=== PATIENT | female | born 1980 | race Caucasian/White ===

== ENCOUNTER 2018-09-02 15:52 | Inpatient (IN) | payer OTHER ==
--- NOTE | 2018-09-02 19:04 | HP ---
COWS - Scale Resting Pulse: 0= [place] 80 or Below Sweatin= Chills/Flushing Restless Observation: 1= Difficult to Sit Still Pupil Size: 1= Pupils >than Normal Bone or Joint Aches: 2= Severe Diffuse Aches Runny Nose/ Eye Tearin= Runny Nose/Eyes GI Upset > 30mins: 3= Vomiting/Diarrhea Tremor Observation: 2= Slight Tremor Visible Yawning Observation: 0= None Anxiety or Irritability: 4=Extreme Anxiety Goose Flesh Skin: 0=Smooth Skin COWS Score: 16 CIWA Score - Admission Criteria OAS Guidelines: Admission for Medically Managed Detox: Requires at least one of the followin. CIWA greater than 12 2. Seizures within the past 24 hours 3. Delirium tremens within the past 24 hours 4. Hallucinations within the past 24 hours 5. Acute intervention needed for co occurring medical disorder 6. Acute intervention needed for co occurring psychiatric disorder 7. Severe withdrawal that cannot be handled at a lower level of care (continued vomiting, continued diarrhea, abnormal vital signs) requiring intravenous medication and/or fluids 8. Admission [facility] Chief Complaint: " heroin detox" Allergies/Adverse Reactions: Allergies Allergy/AdvReac Type Severity Reaction Status Date / Time No Known Allergies Allergy Verified 01/04/16 17:33 History of Present Illness: 38 yo female with hx of heroin (nasal), cocaine, street buprenorphine dependence and occasional klonopin dependence is here seeking detox, self referred. Patient reports sobriety 18 months ago, reports relapsed about a week ago. Reports hx of depression and depression reports was on lamicatal BID and stop treatment. Denies any other medical problems. Denies suicidal / homicidal ideation. Reports hx of overdose x3, last episode 12/29/2015. Exam Limitations: No Limitations - Ebola screening Have you traveled outside of the country in the last 21 days: No Have you had contact with anyone from an Ebola affected area: No - Review of Systems Constitutional: Chills, Loss of Appetite (not eatent three days), Malaise, Changes in sleep, Weakness EENT: reports: Tearing, Nose Congestion Respiratory: reports: Cough (x 2 days), Other (chest soreness during inspiration ) Cardiac: reports: Palpitations GI: reports: Diarrhea, Nausea, Poor Appetite, Poor Fluid Intake, Vomiting, Abdominal cramping : reports: Dysuria, Other (new vaginal lesion / "lumps' break out x 2 days, yellow vaginal discharge x 2 days, patient requested STD testing d/t infidelity from partner and urinary discomfort) Musculoskeletal: reports: Back Pain, Joint Pain Integumentary: reports: No Symptoms Reported Neuro: reports: Weakness Endocrine: reports: Increased Thirst Hematology: reports: No Symptoms Reported Psychiatric: reports: Orientated x3, Anxious, Depressed Other Systems: Reviewed and Negative Patient History - Patient Medical History Hx Anemia: No Hx Asthma: No Hx Chronic Obstructive Pulmonary Disease (COPD): No Hx Cancer: No Hx Cardiac Disorders: No Hx Congestive Heart Failure: No Hx Hypertension: No Hx Hypercholesterolemia: No Hx Pacemaker: No HX Cerebrovascular Accident: No Hx Seizures: No Hx Dementia: No Hx Diabetes: No Hx Gastrointestinal Disorders: No Hx Liver Disease: No Hx Genitourinary Disorders: No Hx Sexually Transmitted Disorders: No Hx Renal Disease (ESRD): No Hx Thyroid Disease: No Hx Human Immunodeficiency Virus (HIV): No (negative) Hx Hepatitis C: No Hx Depression: Yes Hx Suicide Attempt: No Hx Bipolar Disorder: Yes Hx Schizophrenia: No - Patient Surgical History Past Surgical History: Yes Other Surgical History: TONSILLECTOMY AT AGE 7 YRS Anesthesia Reaction: No - PPD History Previous Implant?: No Documented Results: Negative w/proof Date: 03/06/15 Results: 0 mm - Reproductive History Patient is a Female of Child Bearing Age (11 -55 yrs old): Yes Last Menstrual Period: 08/27/18 Patient : No - Smoking Cessation Smoking history: Current every day smoker Have you smoked in the past 12 months: Yes Aproximately how many cigarettes per day: 20 Cigars Per Day: 0 Hx Chewing Tobacco Use: No Initiated information on smoking cessation: Yes 'Breaking Loose' booklet given: 09/02/18 - Substance & Tx. History Hx Alcohol Use: No Hx Substance Use: Yes Substance Use Type: Cocaine, Heroin, Marijuana Hx Substance Use Treatment: Yes (Last treatment [facility] rehab January 2016) - Substances abused Heroin Substance route: Inhalation Frequency: Daily Amount used: gram a day ( 1 bundle) Age of first use: 32 Date of last use: 09/02/18 Crack Substance route: Smoking Frequency: Daily Amount used: a lot ' more than shit' Age of first use: 32 Date of last use: 09/02/18 Buprenorphine Substance route: Oral Amount used: 8 Age of first use: 38 Date of last use: 08/31/18 Benzodiazepine (Klonopin) Substance route: Oral Frequency: 1-2 times per week Amount used: 2 mg Age of first use: 38 Date of last use: 08/31/18 Family Disease History - Family Disease History Family Disease History: Heart Disease: Father (prosthetic mitral valve ), Other : Mother (htn, depression anxiety), Brother ( opiate dependence) Admission Physical Exam [facility] - Vital Signs Vital Signs: Vital Signs - 24 hr 09/02/18 18:23 Temperature 98 F Pulse Rate 135 H Respiratory 18 Rate Blood Pressure 115/75 - Physical General Appearance: Yes: Disheveled, Moderate Distress, Thin, Sweating, Anxious HEENTM: Yes: EOMI, Hearing grossly Normal, Normal ENT Inspection, Normocephalic , Normal Voice, [place], Pharynx Normal, Tm's normal, Rhinorrhea, Other (cheilitis) Respiratory: Yes: Chest Non-Tender, Lungs Clear, Normal Breath Sounds, No Respiratory Distress, Other (+ cough) Neck: Yes: Within Normal Limits Breast: Yes: Breast Exam Deferred Cardiology: Yes: Regular Rhythm, Regular Rate Abdominal: Yes: Normal Bowel Sounds, Non Tender, Flat, Soft Genitourinary: Yes: Burning, [place], Vaginal Discharge, Other (+papular , v) Musculoskeletal: Yes: full range of Motion, Gait Steady, Pelvis Stable, Back pain Extremities: Yes: Normal Capillary Refill, Normal Inspection, Normal Range of Motion, Coldness 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 intact, Fully Oriented, Alert, Motor Strength 5/5, Depressed Affect Integumentary: Yes: Normal Color, Warm, Diaphoresis Lymphatic: Yes: Within Normal Limits, Other (+left inguinal lymphadenopathy) - Diagnostic (1) Rash and nonspecific skin eruption Current Visit: Yes Status: Acute (2) Cocaine dependence Current Visit: Yes Status: Chronic Qualifiers: Substance use status: uncomplicated Qualified Code(s): F14.20 - Cocaine dependence, uncomplicated (3) Nicotine dependence, uncomplicated Current Visit: Yes Status: Chronic Qualifiers: Nicotine product type: cigarettes Qualified Code(s): F17.210 - Nicotine dependence, cigarettes, uncomplicated (4) Opioid dependence with withdrawal Current Visit: Yes Status: Acute (5) URI (upper respiratory infection) Current Visit: Yes Status: Acute Qualifiers: URI type: unspecified URI Qualified Code(s): J06.9 - Acute upper respiratory infection, unspecified Cleared for Admission [facility] - Detox or Rehab [facility] Level of Care: Medically Managed Detox Regimen/Protocol: Methadone Urine Drug Screen - Results Drug screen NEGATIVE: No Urine drug screen results: THC-Marijuana, FREEDOM-Cocaine, MOP-Opiates, BUP-Suboxone Inpatient Rehab Admission - Rehab Decision to Admit Inpatient rehab admission?: No
[2018-09-02] MEDS ORDERED: ACETAMINOPHEN 325 MG TABLET (FP) PO PRN ×2 (19:13)
[2018-09-02] MEDS ORDERED: MAG HYDROX/AL HYDROX/SIMETH 30 ML UNIT-DOSE CUP PO PRN (19:13)
[2018-09-02] MEDS ORDERED: MELATONIN 5 MG TABLETS PO PRN (19:13)
[2018-09-02] MEDS ORDERED: MAGNESIUM HYDROX 2400MG/30ML ORAL SUSPENSION 30 ML CUP PO PRN (19:13)
[2018-09-02] MEDS ORDERED: MENTHOL/PHENOL 1 EACH UD MM PRN (19:13)
[2018-09-02] MEDS ORDERED: MAGNESIUM CITRATE 300 ML BOTTLE PO PRN (19:13)
[2018-09-02] MEDS ORDERED: cloNIDine HCL 0.1 MG TABLET PO PRN (19:13)
[2018-09-02] MEDS ORDERED: BISMUTH SUBSALICYLATE 524 MG/30 ML UD PO PRN (19:13)
[2018-09-02] MEDS ORDERED: BACITRACIN 15 GM TUBE TOPICAL OINTMENT TP SCH (19:15)
[2018-09-02] MEDS ORDERED: METHADONE HCL 10 MG TABLET (FOR DETOX USE ONLY) PO ONE ×2 (21:00→23:00)
[2018-09-02] MEDS ORDERED: AZITHROMYCIN 250 MG TABLET PO ONE (21:00)
[2018-09-02] MEDS: BACITRACIN 0.9 GM PACKET TP SCH (21:26)
[2018-09-02] MEDS: THIAMINE HCL 100 MG TABLET (FP) PO SCH (22:19)
[2018-09-02] MEDS: diazePAM 5 MG TABLET PO PRN (22:19)
[2018-09-02] MEDS: NICOTINE POLACRILEX 2 MG GUM BUC PRN (23:41)
[2018-09-03 00:47] LABS: EPI CELLS 10.9 /HPF (0-5); URINE APPEARANCE CLOUDY; URINE BACTERIA 970.5 /hpf (NEGATIVE); URINE BILIRUBIN NEGATIVE (NEGATIVE); URINE CASTS 4 /hpf (0-8); URINE COLOR YELLOW; URINE GLUCOSE (UA) NEGATIVE (NEGATIVE); URINE KETONE NEGATIVE (NEGATIVE); URINE LEUK ESTERASE 1+ (NEGATIVE); URINE NITRITE NEGATIVE (NEGATIVE); URINE PROTEIN NEGATIVE (NEGATIVE); URINE RBC 1 /hpf (0-4); URINE WBC 8 /hpf (0-5)
[2018-09-03] MEDS: diazePAM 5 MG TABLET PO PRN ×4 (07:38→22:12)
[2018-09-03] MEDS: NICOTINE POLACRILEX 2 MG GUM BUC PRN ×6 (07:39→20:20)
[2018-09-03] MEDS ORDERED: METHADONE HCL 10 MG TABLET (FOR DETOX USE ONLY) PO ONE (10:00)
[2018-09-03 10:09] LABS: ALBUMIN 3.9 g/dl (3.4-5.0); ALK PHOS 73 U/L (45-117); ANION GAP 8 MMOL/L (8-16); BILIRUBIN,TOTAL 0.4 mg/dL (0.2-1); BLOOD UREA NITROGEN 7 mg/dL (7-18); CALCIUM 8.7 mg/dL (8.5-10.1); CHLORIDE 98 mmol/L (98-107); CO2 30 mmol/L (21-32); CREATININE 0.8 mg/dL (0.55-1.3); GLUCOSE,RANDOM 102 mg/dL (74-106); POTASSIUM 3.9 mmol/L (3.5-5.1); SGOT/AST 21 U/L (15-37); SGPT/ALT 28 U/L (13-61); SODIUM 136 mmol/L (136-145)
--- NOTE | 2018-09-03 10:13 | PN ---
BHS COWS - Scale Resting Pulse: 1= [place] 81-100 Sweatin=Flushed/Facial Moisture Restless Observation: 1= Difficult to Sit Still Pupil Size: 0= Normal to Room Light Bone or Joint Aches: 2= Severe Diffuse Aches Runny Nose/ Eye Tearin= Runny Nose/Eyes GI Upset > 30mins: 1= Stomach Cramp Tremor Observation of Outstretched Hands: 2= Slight Tremor Visible Yawning Observation: 2= >3x During Session Anxiety or Irritability: 2=Irritable/Anxious Goose Flesh Skin: 0=Smooth Skin COWS Score: 15 BHS Progress Note (SOAP) Subjective: sweats shakes interrupted sleep body aches vaginal discharge urinary burning anal burning when I wipe Objective: 09/03/18 10:13 Vital Signs Temperature 97.9 F 09/03/18 07:55 Pulse Rate 69 09/03/18 07:55 Respiratory Rate 18 09/03/18 07:55 Blood Pressure 100/58 L 09/03/18 07:55 O2 Sat by Pulse Oximetry (%) Laboratory Tests 09/02/18 09/03/18 22:56 07:00 Sodium 136 Potassium 3.9 Chloride 98 Carbon Dioxide 30 Anion Gap 8 BUN 7 Creatinine 0.8 Creat Clearance w eGFR 81.16 Random Glucose 102 Calcium 8.7 Total Bilirubin 0.4 AST 21 ALT 28 Alkaline Phosphatase 73 Total Protein 8.0 Albumin 3.9 Urine Color Yellow Urine Appearance Cloudy Urine pH 6.0 Ur Specific [place] 1.010 Urine Protein Negative Urine Glucose (UA) Negative Urine Ketones Negative Urine Blood Trace Urine Nitrite Negative Urine Bilirubin Negative Urine Urobilinogen 1.0 Ur Leukocyte Esterase 1+ H Urine WBC (Auto) 8 Urine RBC (Auto) 1 Urine Casts (Auto) 4 U Epithel Cells (Auto) 10.9 Urine Bacteria (Auto) 970.5 aaox3 ambulating no acute distress repeat u/a with c&s pt c/o burning when urinating Assessment: 09/03/18 10:14 withdrawal sx Plan: continue detox increase fluids macrobid q6hr x 7 days anusol pr labs pending
[2018-09-03] MEDS: BACITRACIN 0.9 GM PACKET TP SCH (10:31)
[2018-09-03] MEDS: NICOTINE 21 MG/24 HOURS TOPICAL PATCH TD SCH (10:32)
[2018-09-03] MEDS: PRENATAL VITAMINS W/ FOLIC ACID TABLET (FP) PO SCH (10:32)
[2018-09-03] MEDS: AZITHROMYCIN 250 MG TABLET PO SCH (10:32)
[2018-09-03 10:46] LABS: HEMOGLOBIN 15.3 GM/dL (10.7-15.3); MCH 29.5 pg (25.7-33.7); MCHC 33.3 g/dl (32.0-36.0); MEAN CELL VOLUME 88.6 fl (80-96); MEAN PLT VOLUME 8.9 fl (7.5-11.1); PLATELET COUNT 306 K/MM3 (134-434); RDW 13.4 % (11.6-15.6); WHITE BLOOD COUNT 8.5 K/mm3 (4.0-10.0)
[2018-09-03] MEDS: NITROFURANTOIN MACROCRYSTAL 50 MG CAPSULE (FP) PO SCH ×3 (11:48→23:02)
[2018-09-03] MEDS: HYDROCORTISONE 2.5% TOPICAL CREAM 30 GM TUBE TP SCH ×2 (11:49→22:12)
--- NOTE | 2018-09-03 11:50 | EKG ---
Test Reason : Blood Pressure : / mmHG Vent. Rate : 069 BPM Atrial Rate : 069 BPM P-R Int : 160 ms QRS Dur : 082 ms QT Int : 418 ms P-R-T Axes : 072 062 066 degrees QTc Int : 447 ms NORMAL SINUS RHYTHM NORMAL ECG NO PREVIOUS ECGS AVAILABLE Confirmed by ALVINO CABAN, CORRINA ([id number]) on 09/03/2018 11:49:43 AM Referred By: MARY DONNELLY Confirmed By:CORRINA DE OLIVEIRA MD
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
[2018-09-03] MEDS: hydrOXYzine PAMOATE 25 MG CAPSULE (FP) PO PRN (17:16)
[2018-09-03] MEDS: THIAMINE HCL 100 MG TABLET (FP) PO SCH (22:14)
[2018-09-04] MEDS: NICOTINE POLACRILEX 2 MG GUM BUC PRN ×4 (02:01→14:23)
[2018-09-04] MEDS: diazePAM 5 MG TABLET PO PRN ×4 (05:25→19:59)
[2018-09-04] MEDS: NITROFURANTOIN MACROCRYSTAL 50 MG CAPSULE (FP) PO SCH ×4 (05:26→23:12)
[2018-09-04] MEDS ORDERED: METHADONE HCL 10 MG TABLET (FOR DETOX USE ONLY) PO ONE (10:00)
[2018-09-04] MEDS: PRENATAL VITAMINS W/ FOLIC ACID TABLET (FP) PO SCH (10:13)
[2018-09-04] MEDS: AZITHROMYCIN 250 MG TABLET PO SCH (10:13)
[2018-09-04] MEDS: HYDROCORTISONE 2.5% TOPICAL CREAM 30 GM TUBE TP SCH ×2 (10:13→22:18)
[2018-09-04] MEDS: BACITRACIN 0.9 GM PACKET TP SCH (10:13)
[2018-09-04] MEDS: NICOTINE 21 MG/24 HOURS TOPICAL PATCH TD SCH (10:14)
--- NOTE | 2018-09-04 13:25 | PN ---
BHS COWS - Scale Resting Pulse: 0= [place] 80 or Below Sweatin=Flushed/Facial Moisture Restless Observation: 1= Difficult to Sit Still Pupil Size: 0= Normal to Room Light Bone or Joint Aches: 2= Severe Diffuse Aches Runny Nose/ Eye Tearin= Runny Nose/Eyes GI Upset > 30mins: 0= None Tremor Observation of Outstretched Hands: 2= Slight Tremor Visible Yawning Observation: 2= >3x During Session Anxiety or Irritability: 2=Irritable/Anxious Goose Flesh Skin: 0=Smooth Skin COWS Score: 13 BHS Progress Note (SOAP) Subjective: visible genital herpes anxiety sweats shakes body aches tired Objective: 09/04/18 13:22 Vital Signs Temperature 97.9 F 09/04/18 09:43 Pulse Rate 65 09/04/18 09:43 Respiratory Rate 17 09/04/18 09:43 Blood Pressure 109/48 L 09/04/18 09:43 O2 Sat by Pulse Oximetry (%) Laboratory Tests 09/02/18 09/03/18 09/03/18 22:56 07:00 07:00 WBC 8.5 RBC 5.20 Hgb 15.3 Hct 46.0 H MCV 88.6 MCH 29.5 D MCHC 33.3 RDW 13.4 Plt Count 306 D MPV 8.9 Sodium Potassium Chloride Carbon Dioxide Anion Gap BUN Creatinine Creat Clearance w eGFR Random Glucose Calcium Total Bilirubin AST ALT Alkaline Phosphatase Total Protein Albumin Urine Color Yellow Urine Appearance Cloudy Urine pH 6.0 Ur Specific [place] 1.010 Urine Protein Negative Urine Glucose (UA) Negative Urine Ketones Negative Urine Blood Trace Urine Nitrite Negative Urine Bilirubin Negative Urine Urobilinogen 1.0 Ur Leukocyte Esterase 1+ H Urine WBC (Auto) 8 Urine RBC (Auto) 1 Urine Casts (Auto) 4 U Epithel Cells (Auto) 10.9 Urine Bacteria (Auto) 970.5 RPR Titer HIV 1&2 Antibody Screen Negative HIV P24 Antigen Negative 09/03/18 09/03/18 07:00 07:00 WBC RBC Hgb Hct MCV MCH MCHC RDW Plt Count MPV Sodium 136 Potassium 3.9 Chloride 98 Carbon Dioxide 30 Anion Gap 8 BUN 7 Creatinine 0.8 Creat Clearance w eGFR 81.16 Random Glucose 102 Calcium 8.7 Total Bilirubin 0.4 AST 21 ALT 28 Alkaline Phosphatase 73 Total Protein 8.0 Albumin 3.9 Urine Color Urine Appearance Urine pH Ur Specific [place] Urine Protein Urine Glucose (UA) Urine Ketones Urine Blood Urine Nitrite Urine Bilirubin Urine Urobilinogen Ur Leukocyte Esterase Urine WBC (Auto) Urine RBC (Auto) Urine Casts (Auto) U Epithel Cells (Auto) Urine Bacteria (Auto) RPR Titer Nonreactive HIV 1&2 Antibody Screen HIV P24 Antigen aaox3 ambulating no acute distress Assessment: 09/04/18 13:23 withdrawal sx pt request to have mortgage underwriter see her private area (vaginal area) to see why she is in so much discomfort when she goes to void. visible open sores to vaginal area noted. Plan: continue detox increase fluids valtrex 1000mg bid x 7 days ordered continue with prior ABX ordered motrin/tylenol prn
--- NOTE | 2018-09-04 13:27 | PN ---
BHS Progress Note Note: pt will remain on the unit until Friday for discharge. pt is at risk of relapse if d/c on Friday. she will go on Friday to her next level of care.
[2018-09-04] MEDS ORDERED: valACYclovir HCL 500 MG TABLET (FP) PO ONE (13:45)
[2018-09-04] MEDS: NICOTINE POLACRILEX 4 MG GUM BUC PRN ×3 (16:47→21:21)
[2018-09-04] MEDS: hydrOXYzine PAMOATE 25 MG CAPSULE (FP) PO PRN (17:09)
[2018-09-04] MEDS ORDERED: valACYclovir HCL 500 MG TABLET (FP) PO SCH (22:00)
[2018-09-04] MEDS: THIAMINE HCL 100 MG TABLET (FP) PO SCH (22:18)
[2018-09-04] MEDS: METHOCARBAMOL 500 MG TABLET PO PRN (22:19)
[2018-09-04] MEDS: valACYclovir HCL 500 MG TABLET (FP) PO SCH (22:19)
[2018-09-05] MEDS: diazePAM 5 MG TABLET PO PRN ×4 (00:40→15:40)
[2018-09-05] MEDS: NICOTINE POLACRILEX 4 MG GUM BUC PRN ×7 (00:42→22:16)
[2018-09-05] MEDS: NITROFURANTOIN MACROCRYSTAL 50 MG CAPSULE (FP) PO SCH ×4 (05:23→23:33)
[2018-09-05] MEDS ORDERED: METHADONE HCL 10 MG TABLET (FOR DETOX USE ONLY) PO ONE (10:00)
[2018-09-05] MEDS: BACITRACIN 0.9 GM PACKET TP SCH (10:08)
[2018-09-05] MEDS: valACYclovir HCL 500 MG TABLET (FP) PO SCH ×2 (10:09→22:15)
[2018-09-05] MEDS: AZITHROMYCIN 250 MG TABLET PO SCH (10:09)
[2018-09-05] MEDS: PRENATAL VITAMINS W/ FOLIC ACID TABLET (FP) PO SCH (10:09)
[2018-09-05] MEDS: HYDROCORTISONE 2.5% TOPICAL CREAM 30 GM TUBE TP SCH ×2 (10:10→22:15)
[2018-09-05] MEDS: NICOTINE 21 MG/24 HOURS TOPICAL PATCH TD SCH (10:10)
[2018-09-05] MEDS: COLLOIDAL OATMEAL 1 BAR EACH TP PRN ×2 (10:29→18:35)
[2018-09-05] MEDS: IBUPROFEN 400 MG TABLET (FP) PO PRN (15:02)
--- NOTE | 2018-09-05 18:02 | PN ---
S Progress Note (SOAP) Subjective: "it bloom when the urine touches my skin" Objective: 09/05/18 18:00 A & o x3 anxious blisters noted to jayla-anal area gait steady Vital Signs Temperature 97.3 F L 09/05/18 17:47 Pulse Rate 71 09/05/18 17:47 Respiratory Rate 16 09/05/18 17:47 Blood Pressure 109/57 L 09/05/18 17:47 O2 Sat by Pulse Oximetry (%) Assessment: 09/05/18 18:01 withdrawal sx herpes blisters Plan: continue detox continue valtrex aveeno soap for bathing
[2018-09-05] MEDS: THIAMINE HCL 100 MG TABLET (FP) PO SCH (22:15)
[2018-09-05] MEDS: hydrOXYzine PAMOATE 25 MG CAPSULE (FP) PO PRN (22:18)
[2018-09-06] MEDS: NICOTINE POLACRILEX 4 MG GUM BUC PRN ×6 (00:46→20:31)
[2018-09-06] MEDS: NITROFURANTOIN MACROCRYSTAL 50 MG CAPSULE (FP) PO SCH ×3 (05:31→18:01)
[2018-09-06] MEDS ORDERED: METHADONE HCL 5 MG TABLET (FOR DETOX USE ONLY) PO ONE (06:00)
[2018-09-06] MEDS: valACYclovir HCL 500 MG TABLET (FP) PO SCH ×2 (10:20→22:24)
[2018-09-06] MEDS: BACITRACIN 0.9 GM PACKET TP SCH (10:20)
[2018-09-06] MEDS: HYDROCORTISONE 2.5% TOPICAL CREAM 30 GM TUBE TP SCH ×2 (10:20→23:05)
[2018-09-06] MEDS: PRENATAL VITAMINS W/ FOLIC ACID TABLET (FP) PO SCH (10:21)
[2018-09-06] MEDS: AZITHROMYCIN 250 MG TABLET PO SCH (10:21)
[2018-09-06] MEDS: NICOTINE 21 MG/24 HOURS TOPICAL PATCH TD SCH (10:21)
[2018-09-06] MEDS: hydrOXYzine PAMOATE 25 MG CAPSULE (FP) PO PRN ×2 (10:58→18:03)
--- NOTE | 2018-09-06 17:19 | PN ---
S Progress Note (SOAP) Subjective: Anxious, chills, interrupted sleep. Patient requesting nicotine gum 4mg stating she smokes 2 ppd of cigarettes. Objective: 09/06/18 17:16 Last Vital Signs Temp Pulse Resp BP Pulse Ox 98.1 F 81 18 112/70 09/06/18 15:52 09/06/18 15:52 09/06/18 15:52 09/06/18 15:52 Laboratory Tests 09/02/18 09/03/18 09/03/18 22:56 07:00 07:00 WBC 8.5 RBC 5.20 Hgb 15.3 Hct 46.0 H MCV 88.6 MCH 29.5 D MCHC 33.3 RDW 13.4 Plt Count 306 D MPV 8.9 Sodium Potassium Chloride Carbon Dioxide Anion Gap BUN Creatinine Creat Clearance w eGFR Random Glucose Calcium Total Bilirubin AST ALT Alkaline Phosphatase Total Protein Albumin Urine Color Yellow Urine Appearance Cloudy Urine pH 6.0 Ur Specific [place] 1.010 Urine Protein Negative Urine Glucose (UA) Negative Urine Ketones Negative Urine Blood Trace Urine Nitrite Negative Urine Bilirubin Negative Urine Urobilinogen 1.0 Ur Leukocyte Esterase 1+ H Urine WBC (Auto) 8 Urine RBC (Auto) 1 Urine Casts (Auto) 4 U Epithel Cells (Auto) 10.9 Urine Bacteria (Auto) 970.5 RPR Titer HIV 1&2 Antibody Screen Negative HIV P24 Antigen Negative 09/03/18 09/03/18 07:00 07:00 WBC RBC Hgb Hct MCV MCH MCHC RDW Plt Count MPV Sodium 136 Potassium 3.9 Chloride 98 Carbon Dioxide 30 Anion Gap 8 BUN 7 Creatinine 0.8 Creat Clearance w eGFR 81.16 Random Glucose 102 Calcium 8.7 Total Bilirubin 0.4 AST 21 ALT 28 Alkaline Phosphatase 73 Total Protein 8.0 Albumin 3.9 Urine Color Urine Appearance Urine pH Ur Specific [place] Urine Protein Urine Glucose (UA) Urine Ketones Urine Blood Urine Nitrite Urine Bilirubin Urine Urobilinogen Ur Leukocyte Esterase Urine WBC (Auto) Urine RBC (Auto) Urine Casts (Auto) U Epithel Cells (Auto) Urine Bacteria (Auto) RPR Titer Nonreactive HIV 1&2 Antibody Screen HIV P24 Antigen Labs reviewed: abnormal UA Assessment: 09/06/18 17:17 Withdrawal symptoms Noted with abnormal UA Plan: Continue detox Encouraged PO water hydration Abnormal UA: repeat UA stat Patient for discharge tomorrow. Follow up on repeated UA result to rule out UTI before discharging patient.
[2018-09-06] MEDS: IBUPROFEN 400 MG TABLET (FP) PO PRN (18:03)
[2018-09-06 22:06] VITALS: TEMP 97.9
[2018-09-06] MEDS: METHOCARBAMOL 500 MG TABLET PO PRN (22:24)
[2018-09-06] MEDS: THIAMINE HCL 100 MG TABLET (FP) PO SCH (22:25)
[2018-09-07] MEDS: NITROFURANTOIN MACROCRYSTAL 50 MG CAPSULE (FP) PO SCH ×2 (00:10→05:18)
[2018-09-07] MEDS: NICOTINE POLACRILEX 4 MG GUM BUC PRN ×4 (03:52→10:36)
--- NOTE | 2018-09-07 09:09 | DS ---
[facility] Detox Discharge Summary Admission Date: 09/02/18 Discharge Date: 09/07/18 - History Present History: Alcohol Dependence, Cannabis Dependence, Cocaine Dependence, Opioid Dependence - Physical Exam Results Vital Signs: Vital Signs Temperature 97.9 F 09/07/18 06:00 Pulse Rate 71 09/07/18 06:00 Respiratory Rate 16 09/07/18 06:00 Blood Pressure 124/72 09/07/18 06:00 O2 Sat by Pulse Oximetry (%) - Treatment Hospital Course: Detox Protocol Followed, Detoxed Safely, Responded well, Discharged Condition Good, Rehab Referral Accepted - Medication Discharge Medications: Ambulatory Orders Sertraline HCl [Zoloft] 100 mg PO DAILY #30 tablet 11/21/15 Sertraline HCl [Zoloft -] 100 mg PO DAILY #60 tablet 02/01/16 traZODone HCL [Desyrel -] 100 mg PO HS #30 tablet 02/01/16 Lamictal 100 mg PO DAILY 09/02/18 - Diagnosis (1) Opioid dependence with withdrawal Current Visit: Yes Status: Chronic (2) Substance induced mood disorder Current Visit: Yes Status: Acute (3) Substance-induced anxiety disorder Current Visit: Yes Status: Acute (4) URI (upper respiratory infection) Current Visit: Yes Status: Acute Qualifiers: URI type: unspecified URI Qualified Code(s): J06.9 - Acute upper respiratory infection, unspecified (5) Cocaine dependence Current Visit: Yes Status: Chronic Qualifiers: Substance use status: uncomplicated Qualified Code(s): F14.20 - Cocaine dependence, uncomplicated (6) Nicotine dependence, uncomplicated Current Visit: Yes Status: Chronic Qualifiers: Nicotine product type: cigarettes Qualified Code(s): F17.210 - Nicotine dependence, cigarettes, uncomplicated (7) Alcohol dependence with withdrawal, uncomplicated Current Visit: Yes Status: Chronic (8) Personality disorder, unspecified Current Visit: No Status: Acute (9) Substance-induced sleep disorder Current Visit: No Status: Acute (10) Cannabis dependence Current Visit: Yes Status: Chronic (11) Chronic post-traumatic stress disorder (PTSD) Current Visit: No Status: Chronic (12) Post traumatic stress disorder (PTSD) Current Visit: No Status: Chronic (13) Psychoactive substance-induced mood disorder Current Visit: No Status: Chronic (14) Sedative/hypnotic withdrawal without complication Current Visit: Yes Status: Chronic - AMA Did Patient Leave Against Medical Advice: No [facility]
[2018-09-07 09:32] VITALS: BP 116/63; PULSE 84
[2018-09-07 10:17] LABS: EPI CELLS 3.7 /HPF (0-5); PH,URINE 8.5 (5.0-8.0); URINE APPEARANCE CLEAR; URINE BACTERIA 46.7 /hpf (NEGATIVE); URINE BILIRUBIN NEGATIVE (NEGATIVE); URINE CASTS 0 /hpf (0-8); URINE COLOR YELLOW; URINE GLUCOSE (UA) NEGATIVE (NEGATIVE); URINE KETONE NEGATIVE (NEGATIVE); URINE LEUK ESTERASE 1+ (NEGATIVE); URINE NITRITE NEGATIVE (NEGATIVE); URINE PROTEIN NEGATIVE (NEGATIVE); URINE RBC 1 /hpf (0-4); URINE WBC 1 /hpf (0-5)
[2018-09-07] MEDS: BACITRACIN 0.9 GM PACKET TP SCH (10:35)
[2018-09-07] MEDS: PRENATAL VITAMINS W/ FOLIC ACID TABLET (FP) PO SCH (10:35)
[2018-09-07] MEDS: valACYclovir HCL 500 MG TABLET (FP) PO SCH (10:48)
[2018-09-07] MEDS: HYDROCORTISONE 2.5% TOPICAL CREAM 30 GM TUBE TP SCH (11:01)
[2018-09-07] MEDS: NICOTINE 21 MG/24 HOURS TOPICAL PATCH TD SCH (11:02)
[2018-09-07] MEDS ORDERED: valACYclovir HCL 500 MG TABLET (FP) PO ONE (12:00)
== END 2018-09-07 11:48 | disposition home or self-care (01) | DRG 773 ==
LOC: YASAS 15:52 → Y6N 20:58
PROVIDERS: ADMIT Surgery; ATTEND Surgery
PROC: HZ2ZZZZ Detoxification Services for Substance Abuse Treatment (ICD-10-PCS; principal; 2018-09-02)
DX: F11.23 Opioid dependence with withdrawal (principal); F10.230 Alcohol dependence with withdrawal, uncomplicated; F13.230 Sedative, hypnotic or anxiolytic dependence with withdrawal, uncomplicated; F14.20 Cocaine dependence, uncomplicated; F12.20 Cannabis dependence, uncomplicated; F17.210 Nicotine dependence, cigarettes, uncomplicated; F19.24 Other psychoactive substance dependence with psychoactive substance-induced mood disorder; F19.280 Other psychoactive substance dependence with psychoactive substance-induced anxiety disorder; F19.282 Other psychoactive substance dependence with psychoactive substance-induced sleep disorder; F60.9 Personality disorder, unspecified; F19.94 Other psychoactive substance use, unspecified with psychoactive substance-induced mood disorder; F43.10 Post-traumatic stress disorder, unspecified; J06.9 Acute upper respiratory infection, unspecified; R82.90 Unspecified abnormal findings in urine; A60.00 Herpesviral infection of urogenital system, unspecified; R21 Rash and other nonspecific skin eruption
CPT/HCPCS: 36415; 80053; 81003; 85027; 86593; 87389; 93005; 93010

== ENCOUNTER 2019-12-16 11:09 | Inpatient (IN) | payer OTHER ==
--- NOTE | 2019-12-16 11:41 | BHS.RME ---
Substance Use & Tx History - Substance Use History Alcohol Substance amount: 1 pint whisky Frequency of use: Daily Substance route: Oral Date of Last Use: 12/16/19 Hypnotics/Other Sedatives Substance amount: 2 bundles up to 4 bundles Frequency of use: Daily Substance route: Inhalation (ex: sniffing or snorting) Date of Last Use: 12/15/19 Cocaine- Powder Substance amount: 1/2 gram Frequency of use: Less than 3 times per week Substance route: Inhalation (ex: sniffing or snorting) Date of Last Use: 12/15/19 Benzodiazepines Substance amount: xanax or klonopin 2 mg tabs - 3 tabs Frequency of use: Daily Substance route: Oral Date of Last Use: 12/16/19 (8:30AM) Marijuana/Hashish Substance amount: medically prescribed Frequency of use: Daily Substance route: Smoking Date of Last Use: 12/16/19 - Last Treatment Date of last treatment: 09/02-09/07/18 Treatment type: Substance Use Disorder (MAI) Where was last treatment: Detox Physical/Psych/Mental Status - Behavior General Behavior: Increased activity (restlessness, agitation) Eye Contact: Normal - Cooperativeness Cooperativeness: Cooperative - Thinking Thought Processes: Tight, Logical, Goal Directed Thought content: Future oriented - Physical Health Problems Is patient presently having any pain?: No Does patient presently have any injuries (include location): No Does patient currently have a fever: No Is patient : No COWS - Scale Resting Pulse: 1= [place] 81-100 Sweatin= Chills/Flushing Restless Observation: 1= Difficult to Sit Still Pupil Size: 1= Pupils >than Normal Bone or Joint Aches: 1= Mild Discomfort Runny Nose/ Eye Tearin= Nasal Congestion GI Upset > 30mins: 0= None Tremor Observation: 1= Tremor [place], Not Seen Yawning Observation: 1= 1-2x During Session Anxiety or Irritability: 1=Feels Anxious/Irritable Goose Flesh Skin: 0=Smooth Skin COWS Score: 9 CIWA Nausea/Vomitin-Mild Nausea/No Vomiting Muscle Tremors: 2 Anxiety: 2 Agitation: 3 Paroxysmal Sweats: No Perspiration Orientation: 0-Oriented Tacttile Disturbances: 0-None Auditory Disturbances: 0-None Visual Disturbances: 0-None Headache: 1-Very Mild CIWA-Ar Total Score: 9
[2019-12-16 12:49] VITALS: BMI 29.0
--- NOTE | 2019-12-16 12:58 | HP ---
COWS - Scale Resting Pulse: 1= MS 81-100 Sweatin= Chills/Flushing Restless Observation: 1= Difficult to Sit Still Pupil Size: 1= Pupils >than Normal Bone or Joint Aches: 1= Mild Discomfort Runny Nose/ Eye Tearin= Nasal Congestion GI Upset > 30mins: 0= None Tremor Observation: 1= Tremor [place], Not Seen Yawning Observation: 1= 1-2x During Session Anxiety or Irritability: 1=Feels Anxious/Irritable Goose Flesh Skin: 0=Smooth Skin COWS Score: 9 CIWA Score Nausea/Vomitin-Mild Nausea/No Vomiting Muscle Tremors: 2 Anxiety: 2 Agitation: 3 Paroxysmal Sweats: No Perspiration Orientation: 0-Oriented Tacttile Disturbances: 0-None Auditory Disturbances: 0-None Visual Disturbances: 0-None Headache: 1-Very Mild CIWA-Ar Total Score: 9 - Admission Criteria OASAS Guidelines: Admission for Medically Managed Detox: Requires at least one of the followin. CIWA greater than 12 2. Seizures within the past 24 hours 3. Delirium tremens within the past 24 hours 4. Hallucinations within the past 24 hours 5. Acute intervention needed for co occurring medical disorder 6. Acute intervention needed for co occurring psychiatric disorder 7. Severe withdrawal that cannot be handled at a lower level of care (continued vomiting, continued diarrhea, abnormal vital signs) requiring intravenous medication and/or fluids 8. Admitting History and Physical - Admission Chief Complaint: Ms. Nguyen is a 39 yo woman who presents to [facility] requesting detox for alcohol and heroin use. History of Present Illness: Ms. Nguyen is a 39 yo woman who presents to [facility] requesting detox for alcohol and heroin use. She was here in August and successfully completed detox. She relapsed 3 mos ago. PMH: HCV positive, treated PSH: tonsillectomy Psych: PTSD, bipolar, GUZMAN SOC: lives in [place] with [facility] Legal: none Substance Use History Alcohol Substance amount: 1 pint whisky Frequency of use: Daily Substance route: Oral Date of Last Use: 12/16/19 First use age 15 y No seizures Blackout in 2019 Heroin Substance amount: 2 bundles up to 4 bundles Frequency of use: Daily Substance route: Inhalation (ex: sniffing or snorting) Date of Last Use: 12/15/19 First use age 32 y OD x 3, last was December 2015 has Narcan Cocaine- Powder Substance amount: 1/2 gram Frequency of use: Less than 3 times per week Substance route: Inhalation (ex: sniffing or snorting) Date of Last Use: 12/15/19 First use age 19 y Crack: stopped more than one year ago Benzodiazepines Substance amount: xanax or klonopin 2 mg tabs - 3 tabs Frequency of use: Daily Substance route: Oral Date of Last Use: 12/16/19 (8:30AM) First use age 32 y Marijuana/Hashish Substance amount: medically prescribed Frequency of use: Daily Substance route: Smoking Date of Last Use: 12/16/19 First use age 13 y - Last Treatment Date of last treatment: 09/02-09/07/18 Treatment type: Substance Use Disorder (MAI) Where was last treatment: Detox vivitrol: 2015, last taken 02/19/2019 Suboxone, abused, street use 1x History Source: Patient Limitations to Obtaining History: No Limitations - Past Medical History ...LMP: 08/27/18 - Smoking History Smoking history: Current every day smoker Have you smoked in the past 12 months: Yes Aproximately how many cigarettes per day: 20 - Alcohol/Substance Use Hx Alcohol Use: No Admission [facility] Allergies/Adverse Reactions: Allergies Allergy/AdvReac Type Severity Reaction Status Date / Time mushroom Allergy Intermediate Vomiting Verified 12/16/19 12:28 No Known Drug Allergies Allergy Verified 12/16/19 12:28 fragance Allergy Uncoded 12/16/19 12:28 Exam Limitations: No Limitations - Ebola screening Have you traveled outside of the country in the last 21 days: No Have you been sick,other than usual withdrawal symptoms: No Do you have a fever: No - Review of Systems Constitutional: No Symptoms Reported EENT: reports: Blurred Vision, Nose Congestion, Other (has glasses for distance and reading, has reading glasses with her) Respiratory: reports: SOB with Exertion (she attributes to smoking) Cardiac: reports: No Symptoms Reported GI: reports: Nausea, Vomiting : reports: No Symptoms Reported Musculoskeletal: reports: Back Pain Integumentary: reports: No Symptoms Reported Neuro: reports: No Symptoms reported Endocrine: reports: No Symptoms Reported Hematology: reports: No Symptoms Reported Psychiatric: reports: Anxious, Depressed (no SI) Patient History - Patient Medical History Hx Anemia: No Hx Asthma: No Hx Chronic Obstructive Pulmonary Disease (COPD): No Hx Cancer: No Hx Cardiac Disorders: No Hx Congestive Heart Failure: No Hx Hypertension: No Hx Hypercholesterolemia: No Hx Pacemaker: No HX Cerebrovascular Accident: No Hx Seizures: No Hx Dementia: No Hx Diabetes: No Hx Gastrointestinal Disorders: No Hx Liver Disease: No Hx Genitourinary Disorders: No Hx Sexually Transmitted Disorders: No Hx Renal Disease (ESRD): No Hx Thyroid Disease: No Hx Human Immunodeficiency Virus (HIV): No (negative) Hx Hepatitis C: No Hx Depression: Yes Hx Suicide Attempt: No Hx Bipolar Disorder: Yes Hx Schizophrenia: No - Patient Surgical History Past Surgical History: Yes Hx Neurologic Surgery: No Hx Cataract Extraction: No Hx Cardiac Surgery: No Hx Lung Surgery: No Hx Breast Surgery: No Hx Breast Biopsy: No Hx Abdominal Surgery: No Hx Appendectomy: No Hx Cholecystectomy: No Hx Genitourinary Surgery: No Hx Section: No Hx Orthopedic Surgery: No Other Surgical History: TONSILLECTOMY AT AGE 7 YRS Anesthesia Reaction: No - PPD History Date: 09/04/18 Results: 0 mm - Reproductive History Last Menstrual Period: 08/27/18 - Smoking Cessation Smoking history: Current every day smoker Have you smoked in the past 12 months: Yes Aproximately how many cigarettes per day: 20 Cigars Per Day: 0 Hx Chewing Tobacco Use: No Initiated information on smoking cessation: Yes 'Breaking Loose' booklet given: 12/16/19 - Substances abused Benzodiazepine (Klonopin) Substance route: Oral Frequency: Daily Amount used: 3 tabs Age of first use: 32 Date of last use: 12/16/19 Cocaine Substance route: Inhalation Frequency: 1-3 times last 30 days Amount used: 1/2 gram Age of first use: 19 Date of last use: 12/15/19 Alcohol Substance route: Oral Frequency: Daily Amount used: [place] Age of first use: 15 Date of last use: 12/09/19 Heroin Substance route: Oral Frequency: Daily Amount used: 2 bundles Age of first use: 32 Date of last use: 12/15/19 Marijuana/Hashish Substance route: Smoking Frequency: Daily Amount used: 6-8 puff Age of first use: 13 Date of last use: 12/16/19 Admission Physical Exam [facility] - Vital Signs Vital Signs: Vital Signs - 24 hr 12/16/19 11:09 Temperature 97.2 F L Pulse Rate 82 Respiratory 18 Rate Blood Pressure 98/60 - Physical General Appearance: Yes: No Apparent Distress, Nourished, Appropriately Dressed HEENTM: Yes: Hearing grossly Normal, Normocephalic, Normal Voice, Other (left esotropia) Respiratory: Yes: Lungs Clear, Normal Breath Sounds, No Respiratory Distress, No Accessory Muscle Use Neck: Yes: Within Normal Limits, Supple Breast: Yes: Breast Exam Deferred Cardiology: Yes: Regular Rhythm, Regular Rate, S1, S2 Abdominal: Yes: Normal Bowel Sounds, Non Tender, Flat, Soft Back: Yes: Normal Inspection Musculoskeletal: Yes: Gait Steady Extremities: Yes: Normal Inspection, Non-Tender Neurological: Yes: Alert, Normal Response Integumentary: Yes: Normal Color, Dry, Warm - Diagnostic (1) Hepatitis C Current Visit: No Status: Chronic Comment: treated (2) Alcohol dependence with withdrawal, uncomplicated Current Visit: Yes Status: Acute (3) Cocaine dependence Current Visit: Yes Status: Acute Qualifiers: Substance use status: uncomplicated Qualified Code(s): F14.20 - Cocaine dependence, uncomplicated (4) Nicotine dependence, uncomplicated Current Visit: Yes Status: Acute Qualifiers: Nicotine product type: cigarettes Qualified Code(s): F17.210 - Nicotine dependence, cigarettes, uncomplicated (5) Opioid dependence with withdrawal Current Visit: Yes Status: Acute (6) Sedative/hypnotic withdrawal without complication Current Visit: Yes Status: Acute (7) Bipolar 1 disorder Current Visit: Yes Status: Acute (8) GUZMAN (generalized anxiety disorder) Current Visit: Yes Status: Acute (9) Chronic post-traumatic stress disorder (PTSD) Current Visit: No Status: Chronic Cleared for Admission [facility] - Detox or Rehab [facility] Level of Care: Medically Managed Detox Regimen/Protocol: Methadone/Librium Breathalyzer - Breathalyzer Breathalyzer: 0 POC Urine test - Test device test lot number: [id number] Expiration date: 01/31/20 - Control test control: Yes Urine Drug Screen - Test Device Lot number: [id number] Expiration date: 01/30/21 - Control Is test valid?: Yes - Results Drug screen NEGATIVE: No Urine drug screen results: THC-Marijuana, FREEDOM-Cocaine, FEN-Fentanyl, MOP-Opiates , OXY-Oxycodone, MTD-Methadone, BZO-Benzodiazepines Inpatient Rehab Admission - Rehab Decision to Admit Inpatient rehab admission?: No
[2019-12-16] MEDS ORDERED: MAG HYDROX/AL HYDROX/SIMETH 30 ML UNIT-DOSE CUP PO PRN (13:25)
[2019-12-16] MEDS ORDERED: METHADONE HCL 10 MG TABLET (FOR DETOX USE ONLY) PO ONE (13:25)
[2019-12-16] MEDS ORDERED: chlordiazePOXIDE HCL 25 MG CAPSULE PO PRN (13:25)
[2019-12-16] MEDS ORDERED: IBUPROFEN 400 MG TABLET (FP) PO PRN (13:25)
[2019-12-16] MEDS ORDERED: METHOCARBAMOL 500 MG TABLET PO PRN (13:25)
[2019-12-16] MEDS ORDERED: ACETAMINOPHEN 325 MG TABLET (FP) PO PRN ×2 (13:25)
[2019-12-16] MEDS ORDERED: cloNIDine HCL 0.1 MG TABLET PO PRN (13:25)
[2019-12-16] MEDS ORDERED: MAGNESIUM CITRATE 300 ML BOTTLE PO PRN (13:25)
[2019-12-16] MEDS ORDERED: MENTHOL/PHENOL 1 EACH UD MM PRN (13:25)
[2019-12-16] MEDS ORDERED: ONDANSETRON *ODT* 4 MG TABLET SL PRN (13:25)
[2019-12-16] MEDS ORDERED: MAGNESIUM HYDROX 2400MG/30ML ORAL SUSPENSION 30 ML CUP PO PRN (13:25)
[2019-12-16] MEDS ORDERED: BISMUTH SUBSALICYLATE 262 MG/15 ML BTL PO PRN (13:25)
[2019-12-16] MEDS ORDERED: COLLOIDAL OATMEAL 1 BAR EACH TP PRN (13:29)
[2019-12-16] MEDS: NICOTINE POLACRILEX 2 MG GUM BUC PRN ×3 (14:34→21:22)
[2019-12-16] MEDS: hydrOXYzine PAMOATE 25 MG CAPSULE (FP) PO SCH ×3 (14:35→21:23)
[2019-12-16] MEDS: NICOTINE 21 MG/24 HOURS TOPICAL PATCH TD SCH (14:36)
--- NOTE | 2019-12-16 14:57 | EKG ---
Test Reason : Blood Pressure : / mmHG Vent. Rate : 059 BPM Atrial Rate : 059 BPM P-R Int : 180 ms QRS Dur : 082 ms QT Int : 432 ms P-R-T Axes : 055 035 048 degrees QTc Int : 427 ms SINUS BRADYCARDIA OTHERWISE NORMAL ECG WHEN COMPARED WITH ECG OF 02-SEP-2018 22:38, NO SIGNIFICANT CHANGE WAS FOUND Confirmed by CORRINA DE OLIVEIRA MD ([id number]) on 12/16/2019 2:57:01 PM Referred By: Confirmed By:CORRINA DE OLIVEIRA MD
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
[2019-12-16 17:19] LABS: HEMATOCRIT 37.8 % (32.4-45.2); HEMOGLOBIN 12.9 GM/dL (10.7-15.3); MCH 30.2 pg (25.7-33.7); MCHC 34.1 g/dl (32.0-36.0); MEAN CELL VOLUME 88.5 fl (80-96); MEAN PLT VOLUME 8.4 fl (7.5-11.1); PLATELET COUNT 300 K/MM3 (134-434); RBC 4.27 M/mm3 (3.60-5.2); RDW 13.8 % (11.6-15.6); WHITE BLOOD COUNT 11.4 K/mm3 (4.0-10.0)
[2019-12-16 17:31] LABS: ALBUMIN 4.1 g/dl (3.4-5.0); BILIRUBIN,TOTAL 0.2 mg/dL (0.2-1); CALCIUM 9.4 mg/dL (8.5-10.1); CREATININE 0.8 mg/dL (0.55-1.3); POTASSIUM 3.5 mmol/L (3.5-5.1); TOT PROT 7.3 g/dl (6.4-8.2)
[2019-12-16] MEDS: chlordiazePOXIDE HCL 25 MG CAPSULE PO SCH ×2 (17:51→22:29)
[2019-12-16] MEDS ORDERED: THIAMINE HCL 100 MG TABLET (FP) PO SCH (22:00)
[2019-12-16] MEDS: MELATONIN 5 MG TABLETS PO SCH ×2 (22:29→22:36)
[2019-12-17] MEDS: hydrOXYzine PAMOATE 25 MG CAPSULE (FP) PO SCH ×2 (05:51→09:22)
[2019-12-17] MEDS: chlordiazePOXIDE HCL 25 MG CAPSULE PO SCH (05:52)
[2019-12-17] MEDS: NICOTINE POLACRILEX 2 MG GUM BUC PRN (05:54)
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
[2019-12-17 09:18] VITALS: BP 154/91; PULSE 80; TEMP 96.9
[2019-12-17] MEDS ORDERED: METHADONE HCL 10 MG TABLET (FOR DETOX USE ONLY) ONE (09:19)
[2019-12-17] MEDS ORDERED: METHADONE HCL 5 MG TABLET (FOR DETOX USE ONLY) ONE (09:19)
[2019-12-17] MEDS: NICOTINE 21 MG/24 HOURS TOPICAL PATCH TD SCH (09:22)
[2019-12-17] MEDS ORDERED: METHADONE (DETOX) 20 MG, METHADONE (DETOX) 5 MG PO ONE (10:00)
[2019-12-17] MEDS ORDERED: PRENATAL VITAMINS W/ FOLIC ACID TABLET (FP) PO SCH (10:00)
[2019-12-17] MEDS ORDERED: SUVOREXANT 10 MG TABLET PO PRN (22:00)
[2019-12-18] MEDS ORDERED: chlordiazePOXIDE HCL 25 MG CAPSULE PO SCH (05:00)
[2019-12-18] MEDS ORDERED: METHADONE HCL 10 MG TABLET (FOR DETOX USE ONLY) PO ONE (10:00)
[2019-12-19] MEDS ORDERED: chlordiazePOXIDE HCL 10 MG CAPSULE PO PRN
[2019-12-19] MEDS ORDERED: chlordiazePOXIDE HCL 10 MG CAPSULE PO SCH (05:00)
[2019-12-19] MEDS ORDERED: METHADONE (DETOX) 10 MG, METHADONE (DETOX) 5 MG PO ONE (10:00)
[2019-12-20] MEDS ORDERED: chlordiazePOXIDE HCL 10 MG CAPSULE PO SCH (05:00)
[2019-12-20] MEDS ORDERED: METHADONE HCL 10 MG TABLET (FOR DETOX USE ONLY) PO ONE (10:00)
[2019-12-21] MEDS ORDERED: chlordiazePOXIDE HCL 10 MG CAPSULE PO ONE (05:00)
[2019-12-21] MEDS ORDERED: METHADONE HCL 5 MG TABLET (FOR DETOX USE ONLY) PO ONE (06:00)
== END 2019-12-17 09:30 | disposition left against medical advice (07) | DRG 770 ==
LOC: YASAS 11:09 → Y6N 12:41 → Y3N 13:10
PROVIDERS: ADMIT Allergy & Immunology; ATTEND Allergy & Immunology
PROC: HZ2ZZZZ Detoxification Services for Substance Abuse Treatment (ICD-10-PCS; principal; 2019-12-16)
DX: F10.230 Alcohol dependence with withdrawal, uncomplicated (principal); F11.23 Opioid dependence with withdrawal; F13.230 Sedative, hypnotic or anxiolytic dependence with withdrawal, uncomplicated; F14.20 Cocaine dependence, uncomplicated; F12.20 Cannabis dependence, uncomplicated; F31.89 Other bipolar disorder; F41.1 Generalized anxiety disorder; F43.10 Post-traumatic stress disorder, unspecified; Z86.19 Personal history of other infectious and parasitic diseases; Z91.410 Personal history of adult physical and sexual abuse; Z91.018 Allergy to other foods
CPT/HCPCS: 36415; 80053; 85027; 86780; 93005; 93010; U0003